=== PATIENT | male | born 2005 | race Caucasian/White ===

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

== ENCOUNTER 2023-08-15 17:50 | Emergency (ER) | payer OTHER ==
[~2023-08-15] VITALS: Ht 172.7 cm; Wt 63.6 kg
[~2023-08-15 17:50] MED LIST changes: +MEDROL 4MG DOSPA4 MG PO
[2023-08-15] MEDS ORDERED: TAMIFLU 75MG75 MG PO (19:38)
[2023-08-15 19:50] VITALS: BP 111/71; PULSE 66; TEMP 97.5
== END 2023-08-15 19:50 | disposition home or self-care (01) ==
LOC: COL.ER 17:50
DX: J10.1 Influenza due to other identified influenza virus with other respiratory manifestations (principal)